=== PATIENT | male | born 2000 | race African-American/Black ===

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

== ENCOUNTER 2018-08-25 14:13 | Emergency (ER) | payer SELFPAY ==
[~2018-08-25] VITALS: Ht 180.3 cm; Wt 78.0 kg
[2018-08-25 14:50] VITALS: BP 129/75
[2018-08-25] MEDS ORDERED: ALBUTEROL (0.083%) 2.5MG/3ML NEB HHN STA (15:46)
[2018-08-25] MEDS ORDERED: IPRATROPIUM BROMIDE (0.02%) 0.5MG/2.5ML NEB HHN STA (15:46)
[2018-08-25] MEDS ORDERED: PREDNISONE 20MG TABLET PO STA (15:46)
[2018-08-25] MEDS ORDERED: ACETAMINOPHEN 325MG TABLET PO ONE (16:15)
== END 2018-08-25 18:07 | disposition home or self-care (01) ==
LOC: ER 14:13
DX: J45.901 Unspecified asthma with (acute) exacerbation (principal); R55 Syncope and collapse
CPT/HCPCS: 71045; 93005; 94640; 99283; J7512; J7611

== ENCOUNTER 2019-04-30 20:25 | Emergency (ER) | payer MEDICAID ==
[~2019-04-30] VITALS: Ht 180.3 cm; Wt 79.0 kg
[2019-04-30 20:52] VITALS: BP 114/63
== END 2019-05-01 01:21 | disposition left against medical advice (07) ==
LOC: ER 20:25
DX: R51 Headache (principal); R50.9 Fever, unspecified; Z53.21 Procedure and treatment not carried out due to patient leaving prior to being seen by health care provider

== ENCOUNTER 2019-11-06 10:37 | Emergency (ER) | payer MEDICAID ==
[~2019-11-06] VITALS: Ht 177.8 cm; Wt 79.0 kg
[2019-11-06] MEDS ORDERED: KETOROLAC 30MG/ML VIAL IM ONE (11:15)
[2019-11-06 12:25] VITALS: BP 120/78
== END 2019-11-06 12:25 | disposition home or self-care (01) ==
LOC: ER 10:37
DX: R07.89 Other chest pain (principal); R51 Headache; F12.10 Cannabis abuse, uncomplicated; J45.909 Unspecified asthma, uncomplicated
CPT/HCPCS: 71045; 93005; 96372; 99283; J1885

== ENCOUNTER 2021-02-01 14:09 | Emergency (ER) | payer MEDICAID ==
[~2021-02-01] VITALS: Ht 180.3 cm; Wt 82.0 kg
[2021-02-01] MEDS ORDERED: BACITRACIN ZINC OINT UDPKT TOP ONE (15:00)
[2021-02-01] MEDS ORDERED: IBUPROFEN 400MG TABLET PO ONE (15:00)
[2021-02-01 15:06] LABS: EOSINOPHILS % 1.4 % (0.0-5.0); HEMATOCRIT. 41.8 % (42.0-52.0); LYMPHOCYTES % 39.5 % (20.0-50.0); MEAN CORPUSCULAR HEMOGLOBIN 29.6 pg (28.0-32.0); MEAN CORPUSCULAR VOLUME 88.2 fL (80.0-94.0); MEAN PLATELET VOLUME 7.9 fl (7.4-10.4); NEUTROPHILS % 49.1 % (40.0-76.0); PLATELET 294 x1000/uL (130-400); RED BLOOD CELL COUNT 4.73 mill/uL (4.7-6.1); RED CELL DISTRIBUTION WIDTH 13.1 % (11.6-14.6)
[2021-02-01 15:11] LABS: CHLORIDE 107 mEq/L (98-107)
[2021-02-01 15:15] LABS: ETHANOL BLOOD < 10 mg/dL
[2021-02-01 15:28] VITALS: BP 122/75
[2021-02-01 17:10] LABS: CLARITY URINE CLEAR (CLEAR); COLOR URINE YELLOW (YELLOW); KETONES URINE TRACE (NEGATIVE); LEUKOCYTE ESTERASE URINE NEGATIVE (NEGATIVE); NITRITE URINE NEGATIVE (NEGATIVE); OCCULT BLOOD URINE NEGATIVE (NEGATIVE); PROTEIN URINE TRACE (NEGATIVE); SPECIFIC GRAVITY URINE 1.027 (1.005-1.030)
[2021-02-01 17:26] LABS: PHENCYCLIDINE URINE SCREEN NEGATIVE (NEGATIVE)
[2021-02-01 17:27] LABS: *AMPHETAMINES SCREEN URINE NEGATIVE (NEGATIVE); *BARBITURATES SCREEN URINE NEGATIVE (NEGATIVE); *BENZODIAZEPINES SCREEN URINE NEGATIVE (NEGATIVE); *COCAINE SCREEN URINE NEGATIVE (NEGATIVE); CANNABINOID URINE SCREEN PRESUMTIVE POSITIVE (NEGATIVE); METHADONE URINE SCREEN NEGATIVE (NEGATIVE); OPIATES URINE SCREEN NEGATIVE (NEGATIVE)
== END 2021-02-01 18:56 | disposition home or self-care (01) ==
LOC: ER 14:09
DX: F33.9 Major depressive disorder, recurrent, unspecified (principal); R45.851 Suicidal ideations; S60.511A Abrasion of right hand, initial encounter; Y04.0XXA Assault by unarmed brawl or fight, initial encounter; Y93.89 Activity, other specified; Y92.89 Other specified places as the place of occurrence of the external cause
CPT/HCPCS: 36415; 73130; 80053; 80305; 80307; 80320; 80329; 81003; 85025; 99284; G0480

== ENCOUNTER 2021-12-23 22:08 | Emergency (ER) | payer MEDICAID ==
[~2021-12-23] VITALS: Ht 180.3 cm; Wt 78.0 kg
[2021-12-23] MEDS ORDERED: IBUPROFEN 600MG TABLET PO ONE (23:00)
[2021-12-23] MEDS ORDERED: ALBU90AE INH (23:06)
[2021-12-23 23:30] VITALS: BP 118/66
== END 2021-12-23 23:30 | disposition home or self-care (01) ==
LOC: ER 22:08
DX: J06.9 Acute upper respiratory infection, unspecified (principal); Z20.822 Contact with and (suspected) exposure to COVID-19
CPT/HCPCS: 71045; 87426; 87804; 99284; C9803